=== PATIENT | male | born 1985 | race Caucasian/White ===

== ENCOUNTER 2025-06-09 01:35 | Emergency (ER) | payer MEDICAID ==
[~2025-06-09] VITALS: Ht 165.1 cm; Wt 82.0 kg
[2025-06-09 01:21] LABS: HEMATOCRIT. 46.2 % (42.0-52.0); HEMOGLOBIN. 15.7 g/dL (14.0-18.0); LYMPHOCYTES % 19.2 % (20.0-50.0); NEUTROPHILS % 74.4 % (40.0-76.0); RED BLOOD CELL COUNT 5.36 mill/uL (4.7-6.1)
[2025-06-09 01:35] LABS: CREATININE 0.8 mg/dL (0.6-1.3); INR 1.0; UREA NITROGEN BLOOD 8 mg/dL (9-23)
[2025-06-09 01:36] LABS: TROPONIN I HIGH SENSITIVITY < 4 ng/L (3.0-53)
[2025-06-09 01:37] LABS: ASPARTATE AMINOTRANSFERASE 55 IU/L (<34); BILIRUBIN DIRECT 0.1 mg/dL (<=3.0)
[2025-06-09 01:38] LABS: BILIRUBIN TOTAL 0.4 mg/dL (0.1-1.0); PROTEIN TOTAL 7.0 g/dL (6.0-8.3)
[2025-06-09 01:44] VITALS: TEMP 36.8; O2SAT 95
[2025-06-09] MEDS: MAGNESIUM/ALUMINUM HYDROXIDE/SIMETHICONE 30ML UDC PO ONE (01:55)
[2025-06-09] MEDS: FAMOTIDINE 20MG/2ML VIAL IV ONE (01:55)
[2025-06-09] MEDS: ONDANSETRON HCL 4MG/2ML INJ IV ONE (01:55)
[2025-06-09 04:32] VITALS: BP 107/70; PULSE 82; RESP 18; O2SAT 100
== END 2025-06-09 04:32 | disposition home or self-care (01) ==
LOC: ER 01:35
DX: R07.89 Other chest pain (principal); F10.129 Alcohol abuse with intoxication, unspecified; Z79.899 Other long term (current) drug therapy; Y90.9 Presence of alcohol in blood, level not specified
CPT/HCPCS: 80076; 80048; 80320; 83880; 83690; 83735; 85025; 85610; 85730; 84484; 36415; 71045; 93005; 96374; 96375; 99285; J1308; J2405; Z7610; G0480